=== PATIENT | female | born 1965 | race Caucasian/White ===

== ENCOUNTER 2020-03-03 10:37 | Inpatient (IN) ==
[2020-03-03] MEDS ORDERED: *HR* FentaNYL (PF) 100 MCG/2 ML VIAL IVP ONE (10:47)
[2020-03-03 11:30] LABS: Basophils % 0.2 %; Eosinophils # 0.1 K/mcL (0.0-0.6); Eosinophils % 0.4 %; Hematocrit 39.6 % (35.3-44.9); Hemoglobin 12.3 g/dL (11.5-15.4); Immature Granulocytes % 0.5 % (0-4); Lymphocytes # 1.4 K/mcL (0.6-4.6); Lymphocytes % 8.2 %; Mean Corpuscular HGB Conc 31.1 g/dL (31.6-35.5); Mean Corpuscular Hemoglobin 31.5 pg (28.0-33.3); Mean Corpuscular Volume 101.3 fL (83.0-100.0); Mean Platelet Volume 9.9 fL (9.4-12.4); Monocytes % 17.7 %; Neutrophils # 12.3 K/mcL (1.6-8.9); Platelet Count 244 K/mcL (140-400); Red Blood Count 3.91 M/mcL (3.82-4.97); Red Cell Distribution Width 12.7 % (11.5-14.5); White Blood Count 16.8 K/mcL (4.3-11.1)
[2020-03-03 11:34] LABS: INR 1.1
[2020-03-03 11:38] LABS: Bacteria,Urine Many per hpf (None-Few); Bilirubin,Urine Negative (Negative); Blood,Urine Small (Negative); Clarity,Urine Ex.Turbid (Clear); Color,Urine Yellow (Yellow); Glucose,Urine (UA) Normal (Normal); Ketones,Urine Negative (Negative); Leukocyte Esterase,Urine Large (Negative); Mucus,Urine Few per lpf (None-Few); Nitrite,Urine Positive (Negative); PH,Urine 6.5 pH Units (5.0-8.0); Protein,Urine 50 mg/dL (Neg-Trace); RBC,Urine 0-3 per hpf (0-3); Specific Gravity,Urine 1.021 (1.010-1.025); Urobilinogen,Urine Normal (Normal); WBC,Urine TNTC per hpf (0-3)
[2020-03-03 11:50] LABS: BUN/Creatinine Ratio 24 (6-26); Blood Urea Nitrogen 11 mg/dL (6-20); Calcium 9.3 mg/dL (8.6-10.3); Carbon Dioxide 34 mEq/L (23-29); Chloride 96 mEq/L (98-107); Glucose 125 mg/dL (70-105); Osmolality,Calculated 283 (280-300); Potassium 4.6 mEq/L (3.5-5.1); Sodium 136 mEq/L (136-145); Troponin I < 0.03 ng/mL (< 0.04); eGFR For African Americans > 60 (> 60); eGFR For Non-African Americans > 60 (> 60)
[2020-03-03] MEDS ORDERED: cefTRIAXone 1,000 MG in Water for inj. (sterile) 10 ML IVP ONE (11:51)
[2020-03-03] MEDS ORDERED: MOM Conc 10 ML UD.LIQ PO PRN (12:14)
[2020-03-03] MEDS ORDERED: Acetaminophen 325 MG TABLET PO PRN (12:14)
[2020-03-03] MEDS ORDERED: Mag Hydrox/Al Hydrox/Simeth 30 ML UDC PO PRN (12:14)
[2020-03-03] MEDS ORDERED: Naloxone 0.4 MG/ML INJ IVP PRN (12:14)
[2020-03-03] MEDS ORDERED: Metoclopramide 10 MG/2 ML VIAL IVP PRN (12:15)
[2020-03-03] MEDS ORDERED: *HR* Heparin 5,000 UNIT/ML VIAL SQ SCH (12:30)
[2020-03-03] MEDS: *HR* Heparin 5,000 UNIT/ML VIAL SQ SCH (16:05)
[2020-03-03] MEDS: *HR* HYDROcodone/Acet 5/325 mg TABLET PO PRN (18:23)
[2020-03-03] MEDS ORDERED: Albuterol 2.5 MG/3 ML NEBULIZER IH PRN (21:30)
[2020-03-03] MEDS: Gabapentin 300 MG CAPSULE PO SCH (22:08)
[2020-03-03] MEDS: ALPRAZolam 1 MG TABLET PO PRN (22:08)
[2020-03-04] MEDS: *HR* Heparin 5,000 UNIT/ML VIAL SQ SCH (00:14)
[2020-03-04] MEDS: *HR* HYDROcodone/Acet 5/325 mg TABLET PO PRN (03:01)
[2020-03-04 05:40] LABS: Basophils % 0.3 %; Eosinophils # 0.2 K/mcL (0.0-0.6); Hematocrit 36.5 % (35.3-44.9); Hemoglobin 11.2 g/dL (11.5-15.4); Immature Granulocytes % 0.3 % (0-4); Lymphocytes # 1.5 K/mcL (0.6-4.6); Lymphocytes % 12.9 %; Mean Corpuscular HGB Conc 30.7 g/dL (31.6-35.5); Mean Corpuscular Hemoglobin 31.1 pg (28.0-33.3); Mean Corpuscular Volume 101.4 fL (83.0-100.0); Monocytes # 1.9 K/mcL (0.0-1.3); Monocytes % 15.7 %; Neutrophils # 8.2 K/mcL (1.6-8.9); Platelet Count 185 K/mcL (140-400); Red Cell Distribution Width 12.4 % (11.5-14.5); Segmented Neutrophils % 68.8 %; White Blood Count 11.9 K/mcL (4.3-11.1)
[2020-03-04 06:00] LABS: BUN/Creatinine Ratio 34 (6-26); Blood Urea Nitrogen 15 mg/dL (6-20); Calcium 9.3 mg/dL (8.6-10.3); Carbon Dioxide 37 mEq/L (23-29); Chloride 95 mEq/L (98-107); Glucose 106 mg/dL (70-105); Magnesium 1.8 mg/dL (1.6-2.6); Osmolality,Calculated 285 (280-300); Phosphorous 3.2 mg/dL (2.7-4.5); Potassium 4.3 mEq/L (3.5-5.1); Sodium 137 mEq/L (136-145); eGFR For African Americans > 60 (> 60); eGFR For Non-African Americans > 60 (> 60)
[2020-03-04] MEDS ORDERED: cefTRIAXone 1,000 MG in Water for inj. (sterile) 10 ML IVP SCH (09:00)
[2020-03-04] MEDS ORDERED: Isosorbide MONOnitrate (24 HR) 30 MG TAB.ER.24H PO SCH (09:00)
[2020-03-04] MEDS ORDERED: Venlafaxine XR (24 HR) 75 MG CAP.ER.24H PO SCH (09:00)
[2020-03-04] MEDS ORDERED: Venlafaxine XR (24 HR) 150 MG CAP.ER.24H PO SCH (09:00)
[2020-03-04] MEDS ORDERED: predniSONE 10 MG TABLET PO SCH (09:00)
[2020-03-04] MEDS: ALPRAZolam 1 MG TABLET PO PRN (09:05)
[2020-03-04] MEDS: Gabapentin 300 MG CAPSULE PO SCH ×3 (09:05→21:30)
[2020-03-04 09:29] LABS: Hematocrit 36.3 % (35.3-44.9); Hemoglobin 11.5 g/dL (11.5-15.4)
[2020-03-04] MEDS ORDERED: Acetaminophen IV 1,000 MG/100 ML INFUS..BTL ONE (13:45)
[2020-03-04] MEDS ORDERED: *HR* Propofol 200 MG/20 ML VIAL IVP ONE (13:46)
[2020-03-04] MEDS ORDERED: *HR* FentaNYL (PF) 100 MCG/2 ML VIAL ONE (13:46)
[2020-03-04] MEDS ORDERED: Lidocaine -MPF 2% 2 ML VIAL ONE (13:48)
[2020-03-04] MEDS ORDERED: Lidocaine HCL 4 ML Topical Solution (Laryng-O-Jet Kit Sterile Pak) TP ONE (13:48)
[2020-03-04] MEDS ORDERED: *HR* Succinylcholine 200 MG/10 ML VIAL IVP ONE (13:48)
[2020-03-04] MEDS ORDERED: Divalproex (12 HR) 250 MG TABLET PO SCH (15:00)
[2020-03-04] MEDS ORDERED: Clindamycin 900 MG/50 ML 900 MG/50 ML IV.SOLN IVPB ONE (15:11)
[2020-03-04] MEDS ORDERED: Dexamethasone 4 MG/ML VIAL ONE (15:12)
[2020-03-04] MEDS ORDERED: Ondansetron 4 MG/2 ML VIAL ONE (15:12)
[2020-03-04] MEDS ORDERED: *HR* HYDROmorphone PF 0.5 MG/0.5 ML SYRINGE IVP PRN (15:54)
[2020-03-04] MEDS ORDERED: Ondansetron 4 MG/2 ML VIAL IVP PRN (15:54)
[2020-03-04] MEDS ORDERED: Promethazine 6.25 MG in Water for inj. (sterile) 20 ML IVPB PRN (15:54)
[2020-03-04] MEDS ORDERED: Naloxone 0.4 MG/ML INJ ONE (16:00)
[2020-03-04] MEDS ORDERED: EPHEDrine 50 MG/ML VIAL ONE (16:01)
[2020-03-04] MEDS ORDERED: Metoclopramide 10 MG/2 ML VIAL IVP PRN (16:59)
[2020-03-04] MEDS ORDERED: Naloxone 0.4 MG/ML INJ IVP PRN (16:59)
[2020-03-04] MEDS ORDERED: *HR* HYDROcodone/Acet 5/325 mg TABLET PO PRN (16:59)
[2020-03-04] MEDS ORDERED: Mag Hydrox/Al Hydrox/Simeth 30 ML UDC PO PRN (16:59)
[2020-03-04] MEDS ORDERED: Acetaminophen 325 MG TABLET PO PRN (16:59)
[2020-03-04] MEDS ORDERED: Albuterol 2.5 MG/3 ML NEBULIZER IH PRN (16:59)
[2020-03-04] MEDS ORDERED: Melatonin 3 MG TABLET PO SCH (21:00)
[2020-03-04] MEDS ORDERED: rOPINIRole 0.25 MG TABLET PO SCH (21:00)
[2020-03-04] MEDS ORDERED: Sennosides 8.6 MG TABLET PO SCH (21:00)
[2020-03-04] MEDS ORDERED: traZODone 50 MG TABLET PO SCH (21:00)
[2020-03-04] MEDS: rOPINIRole 0.25 MG TABLET PO SCH (21:29)
[2020-03-04] MEDS: Sennosides 8.6 MG TABLET PO SCH (21:29)
[2020-03-04] MEDS: Divalproex (12 HR) 250 MG TABLET PO SCH (21:29)
[2020-03-04] MEDS: Melatonin 3 MG TABLET PO SCH (21:29)
[2020-03-04] MEDS: traZODone 50 MG TABLET PO SCH (21:29)
[2020-03-05] MEDS: Clindamycin 900 MG/50 ML 900 MG/50 ML IV.SOLN IVPB SCH ×2 (00:40→09:29)
[2020-03-05 01:14] LABS: Basophils % 0.1 %; Hematocrit 31.7 % (35.3-44.9); Immature Granulocytes % 0.7 % (0-4); Lymphocytes # 0.7 K/mcL (0.6-4.6); Lymphocytes % 7.5 %; Mean Corpuscular HGB Conc 31.2 g/dL (31.6-35.5); Mean Corpuscular Volume 99.4 fL (83.0-100.0); Mean Platelet Volume 10.3 fL (9.4-12.4); Monocytes % 11.6 %; Neutrophils # 7.2 K/mcL (1.6-8.9); Platelet Count 191 K/mcL (140-400); Red Blood Count 3.19 M/mcL (3.82-4.97); Red Cell Distribution Width 12.3 % (11.5-14.5); Segmented Neutrophils % 80.1 %; White Blood Count 8.9 K/mcL (4.3-11.1)
[2020-03-05 01:27] LABS: Hemoglobin 9.9 g/dL (11.5-15.4)
[2020-03-05 01:32] LABS: BUN/Creatinine Ratio 36 (6-26); Blood Urea Nitrogen 20 mg/dL (6-20); Calcium 8.9 mg/dL (8.6-10.3); Carbon Dioxide 36 mEq/L (23-29); Chloride 95 mEq/L (98-107); Glucose 196 mg/dL (70-105); Magnesium 1.8 mg/dL (1.6-2.6); Osmolality,Calculated 288 (280-300); Sodium 135 mEq/L (136-145); eGFR For African Americans > 60 (> 60); eGFR For Non-African Americans > 60 (> 60)
[2020-03-05] MEDS: ALPRAZolam 1 MG TABLET PO PRN ×2 (05:59→16:47)
[2020-03-05] MEDS: cefTRIAXone 1,000 MG in Water for inj. (sterile) 10 ML IVP SCH (09:30)
[2020-03-05] MEDS: Isosorbide MONOnitrate (24 HR) 30 MG TAB.ER.24H PO SCH (09:37)
[2020-03-05] MEDS: Divalproex (12 HR) 250 MG TABLET PO SCH ×3 (09:37→20:31)
[2020-03-05] MEDS: Venlafaxine XR (24 HR) 75 MG CAP.ER.24H PO SCH (09:37)
[2020-03-05] MEDS: Gabapentin 300 MG CAPSULE PO SCH ×4 (09:37→20:31)
[2020-03-05] MEDS: Sennosides 8.6 MG TABLET PO SCH ×2 (09:37→20:31)
[2020-03-05] MEDS: Aspirin Enteric Coated 81 MG Tablet PO SCH (16:01)
[2020-03-05] MEDS: rOPINIRole 0.25 MG TABLET PO SCH (20:31)
[2020-03-05] MEDS: Melatonin 3 MG TABLET PO SCH (20:31)
[2020-03-05] MEDS: traZODone 50 MG TABLET PO SCH (20:31)
[2020-03-06] MEDS: *HR* OxyCODONE Immed Rel 5 MG TABLET PO PRN ×4 (04:11→16:47)
[2020-03-06 05:12] LABS: Basophils % 0.1 %; Eosinophils # 0.2 K/mcL (0.0-0.6); Eosinophils % 2.4 %; Hematocrit 29.7 % (35.3-44.9); Hemoglobin 9.3 g/dL (11.5-15.4); Immature Granulocytes % 0.4 % (0-4); Lymphocytes # 1.8 K/mcL (0.6-4.6); Lymphocytes % 19.6 %; Mean Corpuscular HGB Conc 31.3 g/dL (31.6-35.5); Mean Corpuscular Hemoglobin 31.2 pg (28.0-33.3); Mean Corpuscular Volume 99.7 fL (83.0-100.0); Mean Platelet Volume 10.3 fL (9.4-12.4); Monocytes # 1.3 K/mcL (0.0-1.3); Neutrophils # 5.7 K/mcL (1.6-8.9); Platelet Count 223 K/mcL (140-400); Red Blood Count 2.98 M/mcL (3.82-4.97); Red Cell Distribution Width 12.5 % (11.5-14.5); Segmented Neutrophils % 63.5 %
[2020-03-06 05:31] LABS: BUN/Creatinine Ratio 36 (6-26); Blood Urea Nitrogen 13 mg/dL (6-20); Calcium 8.8 mg/dL (8.6-10.3); Carbon Dioxide 37 mEq/L (23-29); Chloride 98 mEq/L (98-107); Glucose 93 mg/dL (70-105); Magnesium 1.9 mg/dL (1.6-2.6); Osmolality,Calculated 286 (280-300); Potassium 3.9 mEq/L (3.5-5.1); Sodium 138 mEq/L (136-145); eGFR For African Americans > 60 (> 60); eGFR For Non-African Americans > 60 (> 60)
[2020-03-06] MEDS: cefTRIAXone 1,000 MG in Water for inj. (sterile) 10 ML IVP SCH (08:26)
[2020-03-06] MEDS: Sennosides 8.6 MG TABLET PO SCH (08:29)
[2020-03-06] MEDS: Aspirin Enteric Coated 81 MG Tablet PO SCH (08:30)
[2020-03-06] MEDS: Venlafaxine XR (24 HR) 75 MG CAP.ER.24H PO SCH (08:30)
[2020-03-06] MEDS: Isosorbide MONOnitrate (24 HR) 30 MG TAB.ER.24H PO SCH (08:30)
[2020-03-06] MEDS: ALPRAZolam 1 MG TABLET PO PRN ×2 (08:30→15:07)
[2020-03-06] MEDS: Gabapentin 300 MG CAPSULE PO SCH ×3 (08:30→16:45)
[2020-03-06] MEDS: Divalproex (12 HR) 250 MG TABLET PO SCH ×2 (08:30→15:07)
[2020-03-06 12:12] LABS: Adenovirus Not Detected (Not Detect); Coronavirus 229E Not Detected (Not Detect); Coronavirus HKU1 Not Detected (Not Detect); Coronavirus NL63 Not Detected (Not Detect); Coronavirus OC43 Not Detected (Not Detect)
[2020-03-06 12:13] LABS: Bordetella Pertussis Not Detected (Not Detect); Chlamydophila pneumoniae Not Detected (Not Detect); Human Metapneumovirus Not Detected (Not Detect); Human Rhinovirus/Enterovirus Not Detected (Not Detect); Influenza A Subtype 2009 H1 Not Detected (Not Detect); Influenza B Not Detected (Not Detect); Mycoplasma pneumoniae Not Detected (Not Detect); Parainfluenza Virus 1 Not Detected (Not Detect); Parainfluenza Virus 2 Not Detected (Not Detect); Parainfluenza Virus 3 Not Detected (Not Detect); Parainfluenza Virus 4 Not Detected (Not Detect); Respiratory Syncytial Virus Not Detected (Not Detect); SARS-CoV-2 Not Detected (Not Detect)
[2020-03-06 15:32] VITALS: BP 118/69
== END 2020-03-06 18:41 | DRG 481 ==
LOC: EMEROOARM 10:37 → 3NENU 10:37 → SUATTDRO 16:05
PROVIDERS: ADMIT Internal Medicine; ATTEND Pharmacist

== ENCOUNTER 2020-04-28 20:23 | Inpatient (IN) ==
[2020-04-28] MEDS ORDERED: Naloxone 0.4 MG/ML INJ IVP PRN (22:49)
[2020-04-28] MEDS: Ipratropium 1 PUFF INHALER IH SCH (23:37)
[2020-04-29 00:40] LABS: ABG Base Excess 3 mEq/L (-2 to 3); ABG HCO3 30 mEq/L (21-27); ABG Oxygen Saturation 93 % (95-98); ABG PCO2 56 mmHg (35-45); ABG PH 7.34 pH Units (7.32-7.45); ABG PO2 74 mmHg (85-104); ABG TCO2 32 mEq/L (20-26); Blood Gas Modality NIV
[2020-04-29 01:08] LABS: INR 1.3; Prothrombin Time 14.8 Seconds (9.4-12.1)
[2020-04-29 01:23] LABS: Alanine Aminotransferase 7 Units/L (7-52); Albumin 2.8 g/dL (3.5-5.7); Albumin/Globulin Ratio 1.2 (1.1-2.2); Alkaline Phosphatase 76 Units/L (34-104); Aspartate Amino Transferase 20 Units/L (13-39); BUN/Creatinine Ratio 48 (6-26); Bilirubin,Total 0.1 mg/dL (0.3-1.0); Blood Urea Nitrogen 14 mg/dL (6-20); Calcium 7.7 mg/dL (8.6-10.3); Carbon Dioxide 27 mEq/L (23-29); Chloride 101 mEq/L (98-107); Creatine Kinase 75 Units/L (30-223); Globulin 2.4 g/dL (2.4-3.5); Glucose 106 mg/dL (70-105); Lactate Dehydrogenase 207 Units/L (140-271); Osmolality,Calculated 285 (280-300); Potassium 4.2 mEq/L (3.5-5.1); Sodium 137 mEq/L (136-145); Total Protein 5.2 g/dL (6.4-8.9); eGFR For African Americans > 60 (> 60); eGFR For Non-African Americans > 60 (> 60)
[2020-04-29 01:24] LABS: Activated Partial Thrombo Time 253.2 Seconds (26.0-36.0); C-Reactive Protein 123 mg/L (Less than 10)
[2020-04-29 01:42] LABS: Ferritin 62 ng/mL (10-120)
[2020-04-29] MEDS ORDERED: *HR* Heparin 5,000 UNIT/ML VIAL IVP PRN (02:17)
[2020-04-29] MEDS: 0.9 % Sodium Chloride 1,000 ML IVC SCH ×2 (02:42→16:26)
[2020-04-29] MEDS: Heparin 25,000UNIT/250ML 1/2NS 25,000 UNIT/250 ML IV.SOLN IVC SCH (02:43)
[2020-04-29 02:53] LABS: Basophils % 0.2 %; Hematocrit 41.4 % (35.3-44.9); Hemoglobin 12.5 g/dL (11.5-15.4); Immature Granulocytes % 0.5 % (0-4); Lymphocytes # 0.9 K/mcL (0.6-4.6); Lymphocytes % 7.5 %; Mean Corpuscular HGB Conc 30.2 g/dL (31.6-35.5); Mean Corpuscular Hemoglobin 30.1 pg (28.0-33.3); Mean Platelet Volume 9.9 fL (9.4-12.4); Monocytes # 0.9 K/mcL (0.0-1.3); Monocytes % 7.4 %; Neutrophils # 10.5 K/mcL (1.6-8.9); Platelet Count 154 K/mcL (140-400); Red Blood Count 4.15 M/mcL (3.82-4.97); Red Cell Distribution Width 13.7 % (11.5-14.5); Segmented Neutrophils % 84.4 %; White Blood Count 12.5 K/mcL (4.3-11.1)
[2020-04-29 02:54] LABS: Mean Corpuscular Volume 99.8 fL (83.0-100.0)
[2020-04-29 03:03] LABS: INR 1.3; Prothrombin Time 14.7 Seconds (9.4-12.1)
[2020-04-29 03:17] LABS: Heparin anti-factor XA UFH 0.71 IU/mL (0.30-0.70)
[2020-04-29] MEDS: Ipratropium 1 PUFF INHALER IH SCH ×6 (04:29→23:34)
[2020-04-29] MEDS: Doxycycline 100 MG in 0.9 % Sodium Chloride Mini Bag 100 ML IVPB SCH ×2 (05:46→17:26)
[2020-04-29 07:56] LABS: ABG Base Excess 2 mEq/L (-2 to 3); ABG HCO3 31 mEq/L (21-27); ABG Oxygen Saturation 96 % (95-98); ABG PCO2 73 mmHg (35-45); ABG PH 7.24 pH Units (7.32-7.45); ABG PO2 103 mmHg (85-104); ABG TCO2 34 mEq/L (20-26); Blood Gas Pressure Support 16 cm H2O
[2020-04-29] MEDS: Dexamethasone 4 MG/ML VIAL IVP SCH (09:38)
[2020-04-29] MEDS: cefTRIAXone 1,000 MG in 0.9 % Sodium Chloride Mini Bag 100 ML IVPB SCH (09:38)
[2020-04-29] MEDS: Morphine Sulfate 2 MG/ML SYRINGE IVP PRN ×2 (10:35→18:51)
[2020-04-29] MEDS: Dexmedetomidine HCl 400 MCG/100 ML MLS IVC SCH ×2 (13:52→23:46)
[2020-04-29] MEDS: *HR* Heparin 5,000 UNIT/ML VIAL IVP PRN (17:43)
[2020-04-29] MEDS ORDERED: MOM Conc 10 ML UD.LIQ PO PRN (18:12)
[2020-04-29] MEDS: Budesonide/Formoterol 160/4.5 1 PUFF INH IH SCH (19:45)
[2020-04-29 20:27] LABS: ABG Base Excess 3 mEq/L (-2 to 3); ABG HCO3 31 mEq/L (21-27); ABG Oxygen Saturation 96 % (95-98); ABG PCO2 68 mmHg (35-45); ABG PH 7.27 pH Units (7.32-7.45); ABG PO2 96 mmHg (85-104); ABG TCO2 34 mEq/L (20-26)
[2020-04-29] MEDS: ALPRAZolam 1 MG TABLET PO SCH (20:55)
[2020-04-29] MEDS: Divalproex (12 HR) 250 MG TABLET PO SCH (20:55)
[2020-04-29] MEDS: rOPINIRole 0.25 MG TABLET PO SCH (20:55)
[2020-04-29] MEDS: traZODone 50 MG TABLET PO SCH (20:55)
[2020-04-29] MEDS: Venlafaxine XR (24 HR) 150 MG CAP.ER.24H PO SCH (20:56)
[2020-04-29] MEDS: Melatonin 3 MG TABLET PO SCH (20:56)
[2020-04-29] MEDS: Fluticasone Propionate Nasal 50 MCG/SPRAY BOTTLE NS SCH (22:08)
[2020-04-30 00:34] LABS: BUN/Creatinine Ratio 57 (6-26); Blood Urea Nitrogen 16 mg/dL (6-20); Calcium 8.1 mg/dL (8.6-10.3); Carbon Dioxide 31 mEq/L (23-29); Chloride 105 mEq/L (98-107); Glucose 107 mg/dL (70-105); Osmolality,Calculated 294 (280-300); Potassium 4.1 mEq/L (3.5-5.1); Sodium 141 mEq/L (136-145); eGFR For African Americans > 60 (> 60); eGFR For Non-African Americans > 60 (> 60)
[2020-04-30 00:39] LABS: Basophils % 0.1 %; Hematocrit 38.2 % (35.3-44.9); Hemoglobin 11.3 g/dL (11.5-15.4); Immature Granulocytes % 0.4 % (0-4); Lymphocytes # 1.1 K/mcL (0.6-4.6); Lymphocytes % 9.5 %; Mean Corpuscular HGB Conc 29.6 g/dL (31.6-35.5); Mean Corpuscular Hemoglobin 30.2 pg (28.0-33.3); Mean Corpuscular Volume 102.1 fL (83.0-100.0); Mean Platelet Volume 10.3 fL (9.4-12.4); Monocytes # 1.6 K/mcL (0.0-1.3); Monocytes % 13.7 %; Neutrophils # 9.1 K/mcL (1.6-8.9); Platelet Count 169 K/mcL (140-400); Red Blood Count 3.74 M/mcL (3.82-4.97); Red Cell Distribution Width 13.6 % (11.5-14.5); Segmented Neutrophils % 76.3 %; White Blood Count 11.9 K/mcL (4.3-11.1)
[2020-04-30] MEDS: ALPRAZolam 1 MG TABLET PO PRN (02:19)
[2020-04-30] MEDS: Ipratropium 1 PUFF INHALER IH SCH ×6 (04:01→23:59)
[2020-04-30 06:02] LABS: ABG Base Excess 4 mEq/L (-2 to 3); ABG HCO3 32 mEq/L (21-27); ABG Oxygen Saturation 97 % (95-98); ABG PCO2 68 mmHg (35-45); ABG PH 7.28 pH Units (7.32-7.45); ABG PO2 100 mmHg (85-104); ABG TCO2 34 mEq/L (20-26)
[2020-04-30] MEDS: Doxycycline 100 MG in 0.9 % Sodium Chloride Mini Bag 100 ML IVPB SCH ×2 (06:08→16:47)
[2020-04-30] MEDS ORDERED: *HR* Dextrose 50 % in Water (Vial) 50 ML VIAL IVP ONE (06:38)
[2020-04-30] MEDS ORDERED: *HR* Dextrose 50 % in Water (Vial) 50 ML VIAL ONE (06:43)
[2020-04-30] MEDS: Budesonide/Formoterol 160/4.5 1 PUFF INH IH SCH ×2 (07:27→19:47)
[2020-04-30] MEDS ORDERED: Perflutren Lipid Microsphere 1.3 ML in 0.9 % Sodium Chloride 8.7 ML IVP PRN (07:34)
[2020-04-30] MEDS: 0.9 % Sodium Chloride 1,000 ML IVC SCH (08:13)
[2020-04-30] MEDS: Venlafaxine XR (24 HR) 150 MG CAP.ER.24H PO SCH ×2 (08:14→20:50)
[2020-04-30] MEDS: Aspirin Enteric Coated 81 MG Tablet PO SCH (08:14)
[2020-04-30] MEDS: Dexamethasone 4 MG/ML VIAL IVP SCH (08:14)
[2020-04-30] MEDS: Divalproex (12 HR) 250 MG TABLET PO SCH ×3 (08:14→20:50)
[2020-04-30] MEDS: cefTRIAXone 1,000 MG in 0.9 % Sodium Chloride Mini Bag 100 ML IVPB SCH (08:15)
[2020-04-30] MEDS: Fluticasone Propionate Nasal 50 MCG/SPRAY BOTTLE NS SCH ×2 (08:52→22:27)
[2020-04-30] MEDS: Isosorbide MONOnitrate (24 HR) 30 MG TAB.ER.24H PO SCH (08:52)
[2020-04-30] MEDS: ALPRAZolam 1 MG TABLET PO SCH ×3 (08:52→20:49)
[2020-04-30] MEDS ORDERED: (Desvenlafaxine Succinate [Pristiq] 50 MG) PO SCH (09:00)
[2020-04-30 09:08] LABS: Troponin I 0.57 ng/mL (< 0.04)
[2020-04-30] MEDS: Heparin 25,000UNIT/250ML 1/2NS 25,000 UNIT/250 ML IV.SOLN IVC SCH (11:44)
[2020-04-30] MEDS ORDERED: 0.9 % Sodium Chloride 1,000 ML IVC SCH (12:00)
[2020-04-30] MEDS ORDERED: Furosemide 20 MG/2 ML VIAL IVP ONE (14:15)
[2020-04-30] MEDS: *HR* Heparin 5,000 UNIT/ML VIAL IVP PRN (18:52)
[2020-04-30] MEDS: traZODone 50 MG TABLET PO SCH (20:50)
[2020-04-30] MEDS: Melatonin 3 MG TABLET PO SCH (20:51)
[2020-04-30] MEDS: rOPINIRole 0.25 MG TABLET PO SCH (20:52)
[2020-05-01 01:18] LABS: Hematocrit 35.7 % (35.3-44.9); Hemoglobin 10.7 g/dL (11.5-15.4); Immature Granulocytes % 0.3 % (0-4); Lymphocytes # 0.9 K/mcL (0.6-4.6); Mean Corpuscular Hemoglobin 30.7 pg (28.0-33.3); Mean Corpuscular Volume 102.3 fL (83.0-100.0); Mean Platelet Volume 10.7 fL (9.4-12.4); Monocytes # 0.7 K/mcL (0.0-1.3); Monocytes % 10.7 %; Neutrophils # 5.1 K/mcL (1.6-8.9); Platelet Count 147 K/mcL (140-400); Red Blood Count 3.49 M/mcL (3.82-4.97); Red Cell Distribution Width 13.8 % (11.5-14.5); White Blood Count 6.8 K/mcL (4.3-11.1)
[2020-05-01 01:32] LABS: Chol/HDL Ratio 4.3 (0-4.9)
[2020-05-01 01:34] LABS: Alanine Aminotransferase 8 Units/L (7-52); Albumin 2.6 g/dL (3.5-5.7); Albumin/Globulin Ratio 1.2 (1.1-2.2); Alkaline Phosphatase 57 Units/L (34-104); Aspartate Amino Transferase 25 Units/L (13-39); BUN/Creatinine Ratio 53 (6-26); Bilirubin,Total 0.1 mg/dL (0.3-1.0); Blood Urea Nitrogen 18 mg/dL (6-20); Calcium 8.1 mg/dL (8.6-10.3); Carbon Dioxide 31 mEq/L (23-29); Chloride 105 mEq/L (98-107); Globulin 2.1 g/dL (2.4-3.5); Glucose 84 mg/dL (70-105); Osmolality,Calculated 291 (280-300); Sodium 140 mEq/L (136-145); Total Protein 4.7 g/dL (6.4-8.9); eGFR For African Americans > 60 (> 60); eGFR For Non-African Americans > 60 (> 60)
[2020-05-01] MEDS: ALPRAZolam 1 MG TABLET PO PRN (03:37)
[2020-05-01] MEDS: Ipratropium 1 PUFF INHALER IH SCH ×6 (03:50→23:39)
[2020-05-01] MEDS: Doxycycline 100 MG in 0.9 % Sodium Chloride Mini Bag 100 ML IVPB SCH ×2 (05:09→18:50)
[2020-05-01] MEDS: Budesonide/Formoterol 160/4.5 1 PUFF INH IH SCH ×2 (07:26→20:11)
[2020-05-01] MEDS: cefTRIAXone 1,000 MG in 0.9 % Sodium Chloride Mini Bag 100 ML IVPB SCH (09:03)
[2020-05-01] MEDS: Dexamethasone 4 MG/ML VIAL IVP SCH (09:05)
[2020-05-01] MEDS: Venlafaxine XR (24 HR) 150 MG CAP.ER.24H PO SCH ×2 (09:08→20:48)
[2020-05-01] MEDS: ALPRAZolam 1 MG TABLET PO SCH ×3 (09:08→20:49)
[2020-05-01] MEDS: Isosorbide MONOnitrate (24 HR) 30 MG TAB.ER.24H PO SCH (09:08)
[2020-05-01] MEDS: Divalproex (12 HR) 250 MG TABLET PO SCH ×3 (09:08→20:49)
[2020-05-01] MEDS: Aspirin Enteric Coated 81 MG Tablet PO SCH (09:08)
[2020-05-01] MEDS: Fluticasone Propionate Nasal 50 MCG/SPRAY BOTTLE NS SCH ×2 (09:36→20:50)
[2020-05-01] MEDS: Heparin 25,000UNIT/250ML 1/2NS 25,000 UNIT/250 ML IV.SOLN IVC SCH (11:10)
[2020-05-01] MEDS: Dexmedetomidine HCl 400 MCG/100 ML MLS IVC SCH (11:12)
[2020-05-01] MEDS: Melatonin 3 MG TABLET PO SCH (20:49)
[2020-05-01] MEDS: rOPINIRole 0.25 MG TABLET PO SCH (20:49)
[2020-05-01] MEDS: traZODone 50 MG TABLET PO SCH (20:49)
[2020-05-01] MEDS: *HR* Heparin 5,000 UNIT/ML VIAL SQ SCH (22:15)
[2020-05-02] MEDS: Ipratropium 1 PUFF INHALER IH SCH ×4 (03:24→15:28)
[2020-05-02 04:20] LABS: BUN/Creatinine Ratio 31 (6-26); Blood Urea Nitrogen 9 mg/dL (6-20); Calcium 8.1 mg/dL (8.6-10.3); Carbon Dioxide 34 mEq/L (23-29); Chloride 102 mEq/L (98-107); Glucose 94 mg/dL (70-105); Osmolality,Calculated 288 (280-300); Potassium 3.9 mEq/L (3.5-5.1); Sodium 140 mEq/L (136-145); eGFR For African Americans > 60 (> 60); eGFR For Non-African Americans > 60 (> 60)
[2020-05-02] MEDS: *HR* Heparin 5,000 UNIT/ML VIAL SQ SCH ×2 (04:54→14:57)
[2020-05-02] MEDS: Doxycycline 100 MG in 0.9 % Sodium Chloride Mini Bag 100 ML IVPB SCH (04:54)
[2020-05-02] MEDS: Budesonide/Formoterol 160/4.5 1 PUFF INH IH SCH (08:03)
[2020-05-02] MEDS: Aspirin Enteric Coated 81 MG Tablet PO SCH (09:23)
[2020-05-02] MEDS: Venlafaxine XR (24 HR) 150 MG CAP.ER.24H PO SCH (09:24)
[2020-05-02] MEDS: Divalproex (12 HR) 250 MG TABLET PO SCH ×2 (09:24→15:05)
[2020-05-02] MEDS: Isosorbide MONOnitrate (24 HR) 30 MG TAB.ER.24H PO SCH (09:26)
[2020-05-02] MEDS: ALPRAZolam 1 MG TABLET PO SCH ×2 (09:26→15:06)
[2020-05-02] MEDS: Dexamethasone 4 MG/ML VIAL IVP SCH ×2 (09:27→10:33)
[2020-05-02 09:39] LABS: Basophils % 0.2 %; Hematocrit 38.9 % (35.3-44.9); Hemoglobin 11.8 g/dL (11.5-15.4); Immature Granulocytes % 0.7 % (0-4); Lymphocytes # 1.2 K/mcL (0.6-4.6); Lymphocytes % 19.7 %; Mean Corpuscular HGB Conc 30.3 g/dL (31.6-35.5); Mean Platelet Volume 10.5 fL (9.4-12.4); Monocytes # 0.6 K/mcL (0.0-1.3); Monocytes % 10.6 %; Neutrophils # 4.2 K/mcL (1.6-8.9); Platelet Count 177 K/mcL (140-400); Red Blood Count 3.93 M/mcL (3.82-4.97); Red Cell Distribution Width 13.6 % (11.5-14.5); Segmented Neutrophils % 68.8 %
[2020-05-02 10:38] VITALS: BP 142/74
[2020-05-02] MEDS: ALPRAZolam 1 MG TABLET PO PRN (11:23)
[2020-05-02] MEDS ORDERED: dexAMETHasone 4 MG TABLET PO SCH (11:45)
[2020-05-02] MEDS: Gabapentin 300 MG CAPSULE PO SCH ×2 (12:34→15:03)
[2020-05-02] MEDS: cefTRIAXone 1,000 MG in 0.9 % Sodium Chloride Mini Bag 100 ML IVPB SCH (15:02)
[2020-05-02] MEDS: Fluticasone Propionate Nasal 50 MCG/SPRAY BOTTLE NS SCH (15:02)
== END 2020-05-02 16:48 | DRG 871 ==
LOC: 2NENU → SUATTDRO 22:49 → 2NENU 04-29 11:05
PROVIDERS: ADMIT Student in an Organized Health Care Education/Training Program; ATTEND General Practice

== ENCOUNTER 2021-11-29 18:44 | Observation (INO) ==
[2021-11-29] MEDS ORDERED: Ondansetron 4 MG/2 ML VIAL IVP PRN (22:33)
[2021-11-29] MEDS ORDERED: Naloxone 0.4 MG/ML INJ IVP PRN (22:33)
[2021-11-29] MEDS ORDERED: 0.9 % Sodium Chloride 1,000 ML IVC SCH (22:45)
[2021-11-29] MEDS: Acetaminophen 325 MG TABLET PO PRN (22:50)
[2021-11-29] MEDS ORDERED: Azithromycin 500 MG in 0.9 % Sodium Chloride 250 ML IVPB SCH (23:00)
[2021-11-29] MEDS ORDERED: Vancomycin 1,500 MG/265 ML IV.SOLN IVPB ONE (23:01)
[2021-11-29] MEDS: Ipratropium 1 PUFF INHALER IH SCH (23:30)
[2021-11-30 00:08] LABS: Troponin I 0.04 ng/mL (< 0.04)
[2021-11-30] MEDS: Ipratropium 1 PUFF INHALER IH SCH ×6 (04:13→23:17)
[2021-11-30] MEDS: *HR* Heparin 5,000 UNIT/ML VIAL SQ SCH ×2 (04:58→13:34)
[2021-11-30] MEDS: cefTRIAXone 1,000 MG in 0.9 % Sodium Chloride Mini Bag 100 ML IVPB SCH (08:51)
[2021-11-30 09:41] LABS: Hematocrit 38.1 % (35.3-44.9); Hemoglobin 12.1 g/dL (11.5-15.4); Mean Corpuscular HGB Conc 31.8 g/dL (31.6-35.5); Mean Corpuscular Hemoglobin 31.8 pg (28.0-33.3); Mean Corpuscular Volume 100.3 fL (83.0-100.0); Mean Platelet Volume 10.1 fL (9.4-12.4); Platelet Count 197 K/mcL (140-400); Red Cell Distribution Width 12.7 % (11.5-14.5); White Blood Count 8.5 K/mcL (4.3-11.1)
[2021-11-30 09:52] LABS: Albumin 3.2 g/dL (3.5-5.7); Albumin/Globulin Ratio 1.5 (1.1-2.2); Bilirubin,Indirect 0.2 mg/dL (0.0-1.0); Bilirubin,Total 0.2 mg/dL (0.3-1.0); Globulin 2.2 g/dL (2.4-3.5); Total Protein 5.4 g/dL (6.4-8.9)
[2021-11-30 09:53] LABS: BUN/Creatinine Ratio 28 (6-26); Blood Urea Nitrogen 15 mg/dL (6-20); Calcium 8.8 mg/dL (8.6-10.3); Carbon Dioxide 34 mEq/L (23-29); Chloride 98 mEq/L (98-107); Lactate Dehydrogenase 176 Units/L (140-271); Sodium 137 mEq/L (136-145)
[2021-11-30 10:43] LABS: Glucose 88 mg/dL (70-105); Osmolality,Calculated 284 (280-300)
[2021-11-30] MEDS: Acetaminophen 325 MG TABLET PO PRN (13:19)
[2021-11-30] MEDS: ALPRAZolam 1 MG TABLET PO PRN ×2 (15:00→23:58)
[2021-11-30] MEDS: Gabapentin 300 MG CAPSULE PO SCH ×2 (15:22→20:17)
[2021-11-30] MEDS ORDERED: Divalproex (12 HR) 250 MG TABLET PO ONE (20:02)
[2021-11-30] MEDS ORDERED: Gabapentin 300 MG CAPSULE ONE (20:02)
[2021-11-30] MEDS ORDERED: Divalproex (12 HR) 250 MG TABLET PO SCH (21:00)
[2021-12-01] MEDS: Ipratropium 1 PUFF INHALER IH SCH ×6 (04:48→23:20)
[2021-12-01] MEDS: *HR* Enoxaparin 40 MG/0.4 ML SYRINGE SQ SCH (05:41)
[2021-12-01] MEDS ORDERED: Nitroglycerin 0.4 MG TAB.SUBL SL PRN (07:35)
[2021-12-01] MEDS ORDERED: Bisacodyl 10 MG RECTAL SUPPOSITORY RC PRN (07:35)
[2021-12-01] MEDS ORDERED: MOM Conc 10 ML UD.LIQ PO PRN (09:09)
[2021-12-01] MEDS: Aspirin Enteric Coated 81 MG Tablet PO SCH (09:38)
[2021-12-01] MEDS: Sennosides 8.6 MG TABLET PO SCH ×2 (09:38→21:10)
[2021-12-01] MEDS: ALPRAZolam 0.5 MG TABLET PO SCH ×3 (09:38→21:10)
[2021-12-01] MEDS: Venlafaxine XR (24 HR) 150 MG CAP.ER.24H PO SCH ×2 (09:38→21:10)
[2021-12-01] MEDS: Lactulose Oral Soln 20 GM/30 ML UDC PO SCH ×3 (09:39→21:11)
[2021-12-01] MEDS: Isosorbide MONOnitrate (24 HR) 30 MG TAB.ER.24H PO SCH (09:39)
[2021-12-01] MEDS: Gabapentin 300 MG CAPSULE PO SCH ×3 (09:39→21:10)
[2021-12-01] MEDS: cefTRIAXone 1,000 MG in 0.9 % Sodium Chloride Mini Bag 100 ML IVPB SCH (09:40)
[2021-12-01] MEDS: Divalproex (12 HR) 500 MG TABLET PO SCH (09:51)
[2021-12-01] MEDS ORDERED: Melatonin 3 MG TABLET PO SCH (21:00)
[2021-12-01] MEDS ORDERED: rOPINIRole 0.25 MG TABLET PO SCH (21:00)
[2021-12-01] MEDS: Divalproex (12 HR) 250 MG TABLET PO SCH (21:10)
[2021-12-02 03:59] LABS: Hematocrit 33.2 % (35.3-44.9); Hemoglobin 10.6 g/dL (11.5-15.4); Immature Granulocytes % 0.2 % (0-4); Lymphocytes # 1.4 K/mcL (0.6-4.6); Lymphocytes % 24.5 %; Mean Corpuscular HGB Conc 31.9 g/dL (31.6-35.5); Mean Corpuscular Hemoglobin 32.3 pg (28.0-33.3); Mean Corpuscular Volume 101.2 fL (83.0-100.0); Mean Platelet Volume 10.2 fL (9.4-12.4); Monocytes # 0.5 K/mcL (0.0-1.3); Monocytes % 9.7 %; Neutrophils # 3.7 K/mcL (1.6-8.9); Platelet Count 174 K/mcL (140-400); Red Blood Count 3.28 M/mcL (3.82-4.97); Red Cell Distribution Width 12.4 % (11.5-14.5); Segmented Neutrophils % 65.6 %; White Blood Count 5.6 K/mcL (4.3-11.1)
[2021-12-02] MEDS: Ipratropium 1 PUFF INHALER IH SCH ×3 (04:22→11:25)
[2021-12-02 04:25] LABS: BUN/Creatinine Ratio 31 (6-26); Blood Urea Nitrogen 11 mg/dL (6-20); Calcium 8.4 mg/dL (8.6-10.3); Carbon Dioxide 34 mEq/L (23-29); Chloride 96 mEq/L (98-107); Glucose 95 mg/dL (70-105); Osmolality,Calculated 281 (280-300); Potassium 3.6 mEq/L (3.5-5.1); Sodium 136 mEq/L (136-145)
[2021-12-02] MEDS: *HR* Enoxaparin 40 MG/0.4 ML SYRINGE SQ SCH ×2 (04:47→11:37)
[2021-12-02] MEDS: Lactulose Oral Soln 20 GM/30 ML UDC PO SCH (09:48)
[2021-12-02] MEDS: Aspirin Enteric Coated 81 MG Tablet PO SCH (09:49)
[2021-12-02] MEDS: Divalproex (12 HR) 250 MG TABLET PO SCH (09:49)
[2021-12-02] MEDS: Venlafaxine XR (24 HR) 150 MG CAP.ER.24H PO SCH (09:49)
[2021-12-02] MEDS: ALPRAZolam 0.5 MG TABLET PO SCH (09:50)
[2021-12-02] MEDS: Sennosides 8.6 MG TABLET PO SCH (09:50)
[2021-12-02] MEDS: Isosorbide MONOnitrate (24 HR) 30 MG TAB.ER.24H PO SCH (09:50)
[2021-12-02] MEDS: cefTRIAXone 1,000 MG in 0.9 % Sodium Chloride Mini Bag 100 ML IVPB SCH (09:51)
[2021-12-02] MEDS: Gabapentin 300 MG CAPSULE PO SCH (09:54)
[2021-12-02] MEDS: Divalproex (12 HR) 500 MG TABLET PO SCH (10:06)
[2021-12-02 10:11] VITALS: BP 143/63; PULSE 65; TEMP 98.7
[2021-12-02 11:26] VITALS: O2SAT 99
== END 2021-12-02 14:17 ==
LOC: 2NENU → SUATTDRO 21:20
PROVIDERS: ADMIT Pharmacist; ATTEND Internal Medicine

== ENCOUNTER 2021-12-29 19:18 | Observation (INO) ==
[2021-12-30] MEDS ORDERED: Ondansetron ODT 4 MG TAB.RAPDIS SL PRN (04:23)
[2021-12-30] MEDS ORDERED: Melatonin 3 MG TABLET PO PRN (04:23)
[2021-12-30] MEDS ORDERED: Naloxone 0.4 MG/ML INJ IVP PRN (04:23)
[2021-12-30 05:18] LABS: Hematocrit 39.4 % (35.3-44.9); Hemoglobin 12.6 g/dL (11.5-15.4); Mean Corpuscular Hemoglobin 32.8 pg (28.0-33.3); Mean Corpuscular Volume 102.6 fL (83.0-100.0); Mean Platelet Volume 10.3 fL (9.4-12.4); Platelet Count 179 K/mcL (140-400); Red Blood Count 3.84 M/mcL (3.82-4.97); Red Cell Distribution Width 13.5 % (11.5-14.5); White Blood Count 4.2 K/mcL (4.3-11.1)
[2021-12-30] MEDS: Lactulose Oral Soln 20 GM/30 ML UDC PO SCH ×5 (05:19→21:02)
[2021-12-30 05:21] LABS: VBG HCO3 31 mEq/L (21-27); VBG PCO2 50 mmHg (41-51); VBG PO2 61 mmHg (25-50)
[2021-12-30 05:29] LABS: INR 1.2; Prothrombin Time 12.9 Seconds (9.4-12.1)
[2021-12-30 05:43] LABS: Alanine Aminotransferase 6 Units/L (7-52); Albumin 3.4 g/dL (3.5-5.7); Albumin/Globulin Ratio 1.4 (1.1-2.2); Alkaline Phosphatase 42 Units/L (34-104); Aspartate Amino Transferase 14 Units/L (13-39); BUN/Creatinine Ratio 43 (6-26); Bilirubin,Total 0.2 mg/dL (0.3-1.0); Blood Urea Nitrogen 17 mg/dL (6-20); Calcium 9.3 mg/dL (8.6-10.3); Carbon Dioxide 33 mEq/L (23-29); Chloride 100 mEq/L (98-107); Globulin 2.4 g/dL (2.4-3.5); Glucose 123 mg/dL (70-105); Magnesium 1.6 mg/dL (1.6-2.6); Osmolality,Calculated 291 (280-300); Phosphorous 3.3 mg/dL (2.7-4.5); Potassium 4.5 mEq/L (3.5-5.1); Sodium 139 mEq/L (136-145); Total Protein 5.8 g/dL (6.4-8.9); Valproate 39 mcg/mL (50-100)
[2021-12-30] MEDS: *HR* Heparin 5,000 UNIT/ML VIAL SQ SCH ×2 (06:23→16:10)
[2021-12-30] MEDS ORDERED: Furosemide 40 MG/4 ML VIAL IVP SCH (09:00)
[2021-12-30] MEDS ORDERED: Divalproex (12 HR) 500 MG TABLET PO SCH (09:00)
[2021-12-30] MEDS: Aspirin Enteric Coated 81 MG Tablet PO SCH (09:07)
[2021-12-30] MEDS: Divalproex (12 HR) 250 MG TABLET PO SCH ×2 (09:07→21:00)
[2021-12-30] MEDS: Furosemide 40 MG/4 ML VIAL IVP SCH ×2 (09:07→16:20)
[2021-12-30] MEDS: Ipratropium/Albuterol Neb 3 ML IH SCH ×3 (10:00→21:55)
[2021-12-30] MEDS: ALPRAZolam 0.5 MG TABLET PO SCH ×3 (11:59→21:01)
[2021-12-30] MEDS ORDERED: Nitroglycerin 0.4 MG TAB.SUBL SL PRN (12:16)
[2021-12-30] MEDS ORDERED: Bisacodyl 10 MG RECTAL SUPPOSITORY RC PRN (12:16)
[2021-12-30] MEDS: Gabapentin 300 MG CAPSULE PO SCH ×2 (16:20→21:01)
[2021-12-30] MEDS: predniSONE 20 MG TABLET PO SCH (16:20)
[2021-12-30] MEDS ORDERED: Melatonin 3 MG TABLET PO SCH (21:00)
[2021-12-30] MEDS: Venlafaxine XR (24 HR) 150 MG CAP.ER.24H PO SCH (21:00)
[2021-12-30] MEDS ORDERED: rOPINIRole 0.25 MG TABLET PO SCH (21:00)
[2021-12-30] MEDS: Sennosides 8.6 MG TABLET PO SCH (21:01)
[2021-12-30] MEDS: Fluticasone Propionate Nasal 50 MCG/SPRAY BOTTLE NS SCH (21:02)
[2021-12-31] MEDS: Ipratropium/Albuterol Neb 3 ML IH SCH ×2 (04:27→10:46)
[2021-12-31] MEDS: *HR* Heparin 5,000 UNIT/ML VIAL SQ SCH (05:53)
[2021-12-31 07:13] VITALS: BP 119/68; PULSE 86; TEMP 97.9
[2021-12-31] MEDS: predniSONE 20 MG TABLET PO SCH (08:20)
[2021-12-31] MEDS: Venlafaxine XR (24 HR) 150 MG CAP.ER.24H PO SCH (08:20)
[2021-12-31] MEDS: Sennosides 8.6 MG TABLET PO SCH (08:20)
[2021-12-31] MEDS: ALPRAZolam 0.5 MG TABLET PO SCH (08:20)
[2021-12-31] MEDS: Aspirin Enteric Coated 81 MG Tablet PO SCH (08:20)
[2021-12-31] MEDS: Gabapentin 300 MG CAPSULE PO SCH (08:20)
[2021-12-31] MEDS: Divalproex (12 HR) 250 MG TABLET PO SCH (08:21)
[2021-12-31] MEDS: Furosemide 40 MG/4 ML VIAL IVP SCH (08:21)
[2021-12-31] MEDS: Fluticasone Propionate Nasal 50 MCG/SPRAY BOTTLE NS SCH (08:22)
[2021-12-31] MEDS: Lactulose Oral Soln 20 GM/30 ML UDC PO SCH (08:22)
[2021-12-31] MEDS ORDERED: Isosorbide MONOnitrate (24 HR) 30 MG TAB.ER.24H PO SCH (09:00)
[2021-12-31] MEDS ORDERED: Divalproex (12 HR) 500 MG TABLET PO SCH (09:00)
[2021-12-31 10:11] VITALS: O2SAT 99
[2021-12-31 12:28] LABS: Influenza A PCR Negative (Negative); Influenza B PCR Negative (Negative); Resp. Syncytial Virus PCR Negative (Negative)
[2021-12-31 13:23] LABS: SARS-CoV-2 by PCR (In House) Positive (Negative)
== END 2021-12-31 13:08 ==
LOC: 2NENU → SUATTDRO 12-30 02:28
PROVIDERS: ADMIT Internal Medicine; ATTEND Internal Medicine